=== PATIENT | female | born 1995 | race Hispanic/Latino ===

== ENCOUNTER 2019-11-02 10:03 | Emergency (ER) | payer MEDICAID, OTHER ==
[2019-11-02] MEDS ORDERED: ONDANSETRON HCL 4 MG/2 ML VIAL ONE (10:35)
[2019-11-02] MEDS ORDERED: SODIUM CHLORIDE 0.9% 1000ML 1,000 ML IV ONE (10:36)
== END 2019-11-02 11:59 | disposition home or self-care (01) ==
LOC: EDH 10:03
DX: R11.2 Nausea with vomiting, unspecified (principal); J45.909 Unspecified asthma, uncomplicated
CPT/HCPCS: 87804 ×2; 96361; 96374; 99283; J2405; J7030

== ENCOUNTER 2019-11-03 17:50 | Observation (INO) | payer MEDICAID ==
[~2019-11-03] VITALS: Ht 167.6 cm; Wt 104.3 kg
[2019-11-03] MEDS ORDERED: PROMETHAZINE HCL 25 MG/ML 1ML AMPULE IM SCH (18:45)
== END 2019-11-03 19:50 | disposition home or self-care (01) ==
LOC: EDH 17:50 → LDH 18:09
PROVIDERS: ADMIT Specialist; ATTEND Specialist
DX: O26.892 Other specified pregnancy related conditions, second trimester (principal); R10.9 Unspecified abdominal pain; O99.512 Diseases of the respiratory system complicating pregnancy, second trimester; J45.909 Unspecified asthma, uncomplicated; Z3A.21 21 weeks gestation of pregnancy
CPT/HCPCS: 96372; 99284; G0378 ×2; J2550

== ENCOUNTER 2020-02-20 18:13 | Observation (INO) | payer MEDICAID ==
[~2020-02-20] VITALS: Ht 165.1 cm; Wt 111.6 kg
[2020-02-20 19:16] VITALS: BP 120/73
[2020-02-20] MEDS ORDERED: TERBUTALINE SULFATE VIAL 1MG/ML SQ ONE (20:20)
[2020-02-20] MEDS ORDERED: LACTATED RINGERS 1000ML 1,000 ML IV ONE (20:21)
== END 2020-02-20 22:12 | disposition home or self-care (01) ==
LOC: EDH 18:13 → LDH 18:30
PROVIDERS: ADMIT Specialist; ATTEND Specialist
DX: O62.9 Abnormality of forces of labor, unspecified (principal); O60.03 Preterm labor without delivery, third trimester; O99.513 Diseases of the respiratory system complicating pregnancy, third trimester; J45.909 Unspecified asthma, uncomplicated; Z3A.36 36 weeks gestation of pregnancy
CPT/HCPCS: 81001; 96360; 96372; 99284; G0378 ×3; J3105; J7120

== ENCOUNTER 2020-03-07 05:53 | Inpatient (IN) | payer MEDICAID ==
[~2020-03-07] VITALS: Ht 167.6 cm; Wt 117.0 kg
[2020-03-07] MEDS ORDERED: LACTATED RINGERS 1000ML 1,000 ML IV PRN (06:28)
[2020-03-07] MEDS ORDERED: OXYTOCIN 10 USP UNITS/ML 20 UNIT in LACTATED RINGERS 1000ML 1,000 ML IV SCH (06:30)
[2020-03-07 07:06] LABS: APPEARANCE,URINE Clear (CLEAR); BILIRUBIN,URINE Negative (NEGATIVE); COLOR,URINE Yellow (YELLOW); GLUCOSE, URINE (UA) Negative (NEGATIVE); KETONES,URINE Trace mg/dL (NEGATIVE); LEUKOCYTE ESTERASE ,URINE Negative (NEGATIVE); NITRATE,URINE Negative (NEGATIVE); OCCULT BLOOD,URINE Negative (NEGATIVE); PROTEIN,URINE Negative (NEGATIVE)
[2020-03-07 07:06] LABS: HEMATOCRIT 37.8 % (36-48); MEAN CORPUSCULAR HEMOGLOBIN 28.8 pg (27.0-33.0); MEAN CORPUSCULAR HGB CONC 32.3 g/dL (32.0-36.0); MEAN CORPUSCULAR VOLUME 89.2 fL (79-99); RED BLOOD CELL COUNT(AUTO) 4.24 MIL/uL (4.00-5.50); RED CELL DISTRIBUTION WIDTH 14.9 % (11.0-15.5); WHITE BLOOD COUNT (AUTO) 11.3 K/uL (4.8-10.8)
[2020-03-07] MEDS ORDERED: OXYTOCIN-LR 20 UNITS/1000 ML 1,000 ML IV SCH (07:15)
[2020-03-07 07:35] LABS: BACTERIA,URINE Moderate /HPF (None Seen); RBC,URINE 0-1 /HPF (0-1); WBC,URINE 0-1 /HPF (0-1)
[2020-03-07] MEDS ORDERED: LIDOCAINE HCL 1% 20 ML VIAL INJ PRN (09:00)
[2020-03-07] MEDS ORDERED: PROMETHAZINE HCL 25 MG/ML 1ML AMPULE IM PRN (09:00)
[2020-03-07] MEDS ORDERED: MEPERIDINE-PF 50 MG/ML SYG IVP PRN (09:00)
[2020-03-07 09:26] LABS: RAPID PLASMA REAGIN NONREACTIVE (NONREACTIVE)
[2020-03-07 11:42] LABS: AMPHET/METH SCREEN,URINE NEGATIVE (NEGATIVE); BARBITURATE SCREEN, URINE NEGATIVE (NEGATIVE); BENZODIAZEPINES SCREEN,URINE NEGATIVE (NEGATIVE); CANNABINOID SCREEN,URINE NEGATIVE (NEGATIVE); COCAINE SCREEN,URINE NEGATIVE (NEGATIVE); OPIATE SCREEN,URINE NEGATIVE (NEGATIVE); PHENCYCLIDINE SCREEN,URINE NEGATIVE (NEGATIVE)
[2020-03-07] MEDS ORDERED: ACETAMINOPHEN 325 MG TAB PO PRN (13:30)
[2020-03-07] MEDS ORDERED: BENZOCAINE/LANOLIN/ALOE VERA 60 ML AEROSOL TP PRN (13:30)
[2020-03-07] MEDS ORDERED: LANOLIN 30GM OINTMENT TP PRN (13:30)
[2020-03-07] MEDS ORDERED: ACETAMINOPHEN-CODEINE 300/30MG TAB PO PRN (13:30)
[2020-03-07] MEDS ORDERED: DIPH,PERTUSS(ACELL),TET VAC/PF 0.5 ML VIAL IM PRN (13:30)
[2020-03-07] MEDS ORDERED: MEASLES/MUMPS/RUBELLA VACCINE, LIVE 0.5 ML/VIAL SQ PRN (13:30)
[2020-03-07] MEDS ORDERED: WITCH HAZEL 1 PAD TP PRN (13:30)
[2020-03-07] MEDS: IBUPROFEN 600 MG TABLET PO PRN (15:40)
[2020-03-07] MEDS: OXYTOCIN-LR 20 UNITS/1000 ML 1,000 ML IV SCH (15:41)
[2020-03-07 16:44] VITALS: BP 117/55
[2020-03-07] MEDS ORDERED: PREN-154 PO (17:09)
[2020-03-07 19:48] VITALS: BP 102/56
[2020-03-07] MEDS: DOCUSATE SODIUM 100 MG CAP PO SCH (21:23)
[2020-03-07 23:34] VITALS: BP 108/60
[2020-03-08 03:44] VITALS: BP 110/57
[2020-03-08] MEDS: OXYTOCIN-LR 20 UNITS/1000 ML 1,000 ML IV SCH (06:30)
[2020-03-08 07:18] LABS: HEPATITIS Bs ANTIGEN SCREEN P Negative (Negative)
[2020-03-08 07:36] VITALS: BP 102/56
[2020-03-08] MEDS: DOCUSATE SODIUM 100 MG CAP PO SCH (08:01)
[2020-03-08] MEDS: IBUPROFEN 600 MG TABLET PO PRN (08:16)
--- NOTE | 2020-03-08 10:40 | NUR ---
SS Referral for HX of Positive UDS in July; negative on admission; hx of depression ALEJA met with pt. who reports that she resides at home with 6y; maternal grandparents currently caring for 6y and reportedly up to date with immunizations. Pt. is not employed outside the home; parents and boyfriend/FOB Pelon George are supportive. All utilities reportedly connected in the home. Pt. receives Medicaid, [place] and WIC; carseat in place. Baseball Coach will be Dr. Shea in [place]. Pt. denied any smokers in the home. Pt. denied any history of domestic violence or substance abuse. Pt. reported a history of depression as a teenager and was treated by [facility]. Pt. denied anxiety or thoughts of harm to self or others. Pt. voiced knowledge of PPD, denied any current symptoms of depression. SW encouraged pt. to seek assistance if needed for PPD; pt. verbalized an understanding. Pt. reported a strong support system among family. Pt. stated that her parents and boyfriend will assist her post discharge. Pt. provided with [facility], [facility] and [facility] Substance Use Disorder Services brochures. Pt. voiced no needs or concerns. Pt. to be dismissed home with baby when medically cleared. Addendum: 03/08/20 at 1151 by DELLA GUILLAUME Amended: Links added.
[2020-03-08 11:31] VITALS: BP 93/64
--- NOTE | 2020-03-08 12:10 | NUR ---
DISCHARGE INSTRUCTIONS READ AND EXPLAINED TO PATIENT. NO NEW RX GIVEN. QUESTIONS INVITED AND ANSWERED. PT VOICED UNDERSTANDING ON ALL DISCHARGE INSTRUCTIONS.
--- NOTE | 2020-03-08 13:50 | NUR ---
PATIENT LEFT UNIT VIA WHEELCHAIR WITH BABY IN ARMS. PERSONAL VEHICLE USED FOR TRANSPORTATION ACCOMPANIED BY FAMILY. NO COMPLAINTS OR CONCERNS ADDRESSED FROM PATIENT ON DISCHARGE. BABY SECURE IN CARSEAT.
== END 2020-03-08 13:50 | disposition home or self-care (01) | DRG 560 ==
LOC: LDH 05:53 → WSH 16:40
PROVIDERS: ADMIT Specialist; ATTEND Specialist
PROC: 10E0XZZ Delivery of Products of Conception, External Approach (ICD-10-PCS; principal; 2020-03-07)
PROC: 6A550ZT Pheresis of Cord Blood Stem Cells, Single (ICD-10-PCS; 2020-03-07)
PROC: 3E033VJ Introduction of Other Hormone into Peripheral Vein, Percutaneous Approach (ICD-10-PCS; 2020-03-07)
PROC: 3E0234Z Introduction of Serum, Toxoid and Vaccine into Muscle, Percutaneous Approach (ICD-10-PCS; 2020-03-07)
DX: O99.62 Diseases of the digestive system complicating childbirth (principal); O99.344 Other mental disorders complicating childbirth; K80.20 Calculus of gallbladder without cholecystitis without obstruction; F31.9 Bipolar disorder, unspecified; Z3A.39 39 weeks gestation of pregnancy; Z37.0 Single live birth; Z28.21 Immunization not carried out because of patient refusal; Z23 Encounter for immunization; Z82.49 Family history of ischemic heart disease and other diseases of the circulatory system
CPT/HCPCS: 36415; 80305; 81001; 85027; 86592; 86701; 86850; 86900; 86901; 87088; 87340; 87390; 90715; A4351; G0378; J2175; J2550; J2590

== ENCOUNTER 2022-05-30 12:46 | Observation (INO) | payer MEDICAID ==
[~2022-05-30 12:46] MED LIST: PREN-154 PO
[2022-05-30 12:47] VITALS: BP 119/48
[2022-05-30 13:31] LABS: APPEARANCE,URINE CLEAR (CLEAR); BILIRUBIN,URINE NEGATIVE (NEGATIVE); COLOR,URINE YELLOW (YELLOW); GLUCOSE, URINE (UA) NEGATIVE (NEGATIVE); KETONES,URINE 5 mg/dL (NEGATIVE); LEUKOCYTE ESTERASE ,URINE NEGATIVE Leu/uL (NEGATIVE); NITRATE,URINE NEGATIVE (NEGATIVE); PROTEIN,URINE 10 mg/dL (NEGATIVE); UROBILINOGEN,URINE 0.2 mg/dL (0.2-1.0)
[2022-05-30] MEDS: LACTATED RINGERS 1000ML 1,000 ML IV SCH ×2 (13:31→14:30)
[2022-05-30 14:03] LABS: BACTERIA,URINE RARE /HPF (None Seen); MUCUS,URINE RARE LPF (None Seen); SQUAMOUS EPITHELIAL CELL,UR MOD /HPF (0-2)
== END 2022-05-30 15:35 | disposition home or self-care (01) ==
LOC: EDH 12:46 → LDH 12:47
PROVIDERS: ADMIT Obstetrics & Gynecology; ATTEND Obstetrics & Gynecology
DX: O62.9 Abnormality of forces of labor, unspecified (principal); O60.03 Preterm labor without delivery, third trimester; Z3A.31 31 weeks gestation of pregnancy
CPT/HCPCS: 59025; 96360; 96361; 81001; G0378 ×2; G0379

== ENCOUNTER 2022-06-10 10:42 | Observation (INO) | payer MEDICAID ==
[~2022-06-10] VITALS: Ht 162.6 cm; Wt 109.8 kg
[2022-06-10 10:43] VITALS: BP 114/62
[2022-06-10 11:28] LABS: APPEARANCE,URINE CLEAR (CLEAR); BILIRUBIN,URINE NEGATIVE (NEGATIVE); COLOR,URINE LIGHT-YELLOW (YELLOW); GLUCOSE, URINE (UA) NEGATIVE (NEGATIVE); KETONES,URINE NEGATIVE (NEGATIVE); LEUKOCYTE ESTERASE ,URINE NEGATIVE Leu/uL (NEGATIVE); NITRATE,URINE NEGATIVE (NEGATIVE); OCCULT BLOOD,URINE NEGATIVE (NEGATIVE); PROTEIN,URINE NEGATIVE (NEGATIVE); UROBILINOGEN,URINE 0.2 mg/dL (0.2-1.0)
== END 2022-06-10 12:30 | disposition home or self-care (01) ==
LOC: EDH 10:42 → LDH 10:43
PROVIDERS: ADMIT Obstetrics & Gynecology; ATTEND Obstetrics & Gynecology
DX: O36.8130 Decreased fetal movements, third trimester, not applicable or unspecified (principal); O26.893 Other specified pregnancy related conditions, third trimester; R51.9 Headache, unspecified; Z3A.33 33 weeks gestation of pregnancy
CPT/HCPCS: 81003; G0378 ×2; G0379

== ENCOUNTER 2022-06-11 09:57 | Observation (INO) | payer MEDICAID ==
[~2022-06-11] VITALS: Ht 162.6 cm; Wt 114.3 kg
[2022-06-11 11:47] VITALS: BP 118/65
== END 2022-06-11 11:45 | disposition home or self-care (01) ==
LOC: EDH 09:57 → LDH 09:58
PROVIDERS: ADMIT Obstetrics & Gynecology; ATTEND Obstetrics & Gynecology
DX: O36.8130 Decreased fetal movements, third trimester, not applicable or unspecified (principal); Z3A.33 33 weeks gestation of pregnancy
CPT/HCPCS: 59025; 76819; G0379; G0378

== ENCOUNTER 2022-06-18 11:02 | Observation (INO) | payer MEDICAID ==
[~2022-06-18] VITALS: Ht 162.6 cm; Wt 115.7 kg
[2022-06-18 11:53] LABS: BASOPHILS % (AUTO) 0.7 % (0.0-5.0); EOSINOPHILS % (AUTO) 0.7 % (0.0-8.0); HEMATOCRIT 34.6 % (36-48); LYMPHOCYTES % (AUTO) 23.1 % (21.0-51.0); MEAN CORPUSCULAR HEMOGLOBIN 28.7 pg (27.0-33.0); MEAN CORPUSCULAR HGB CONC 33.2 g/dL (32.0-36.0); MEAN CORPUSCULAR VOLUME 86.3 fL (79-99); MONOCYTES % (AUTO) 6.6 % (3.0-13.0); NEUTROPHILS % (AUTO) 66.5 % (40.0-77.0); PLATELET COUNT (AUTO) 319 K/uL (130-400); RED BLOOD CELL COUNT(AUTO) 4.01 MIL/uL (4.00-5.50); RED CELL DISTRIBUTION WIDTH 13.9 % (11.0-15.5); WHITE BLOOD COUNT (AUTO) 10.7 K/uL (4.8-10.8)
[2022-06-18 12:04] LABS: APPEARANCE,URINE CLEAR (CLEAR); BILIRUBIN,URINE NEGATIVE (NEGATIVE); COLOR,URINE COLORLESS (YELLOW); GLUCOSE, URINE (UA) NEGATIVE (NEGATIVE); KETONES,URINE NEGATIVE (NEGATIVE); LEUKOCYTE ESTERASE ,URINE NEGATIVE Leu/uL (NEGATIVE); NITRATE,URINE NEGATIVE (NEGATIVE); OCCULT BLOOD,URINE NEGATIVE (NEGATIVE); PROTEIN,URINE NEGATIVE (NEGATIVE); UROBILINOGEN,URINE 0.2 mg/dL (0.2-1.0)
[2022-06-18 12:08] LABS: CREATININE 0.6 mg/dL (0.5-1.5); POTASSIUM 3.8 mmol/L (3.5-5.1)
[2022-06-18 12:12] LABS: ALBUMIN 2.7 g/dL (3.5-5.0); TOTAL PROTEIN, SERUM 7.2 g/dL (6.0-8.3); URIC ACID 4.7 mg/dL (2.6-7.2)
[2022-06-18 12:16] LABS: INR 0.93 (0.85-1.15); PROTHROMBIN TIME 9.5 SEC (9.6-11.6)
[2022-06-18 12:17] LABS: PARTIAL THROMBOPLASTIN TIME 27.5 SEC (26.3-35.5)
== END 2022-06-18 13:48 | disposition home or self-care (01) ==
LOC: LDH 11:02
PROVIDERS: ADMIT Obstetrics & Gynecology; ATTEND Obstetrics & Gynecology
DX: O26.893 Other specified pregnancy related conditions, third trimester (principal); R03.0 Elevated blood-pressure reading, without diagnosis of hypertension; R51.9 Headache, unspecified; Z3A.34 34 weeks gestation of pregnancy
CPT/HCPCS: 84550; 80053; 85025; 85384; 85610; 85730; 81003; 36415; 76805; G0378 ×3; G0379; A4351

== ENCOUNTER 2022-07-03 15:24 | Observation (INO) | payer MEDICAID ==
[~2022-07-03] VITALS: Ht 162.6 cm; Wt 117.9 kg
[2022-07-03 16:00] VITALS: BP 121/65
== END 2022-07-03 16:45 | disposition home or self-care (01) ==
LOC: EDH 15:24 → LDH 15:25
PROVIDERS: ADMIT Obstetrics & Gynecology; ATTEND Obstetrics & Gynecology
DX: O62.9 Abnormality of forces of labor, unspecified (principal); O42.913 Preterm premature rupture of membranes, unspecified as to length of time between rupture and onset of labor, third trimester; Z3A.36 36 weeks gestation of pregnancy
CPT/HCPCS: 59025; G0378; G0379

== ENCOUNTER 2022-07-06 12:44 | Observation (INO) | payer MEDICAID ==
[~2022-07-06] VITALS: Ht 162.6 cm; Wt 115.7 kg
[2022-07-06 12:46] VITALS: BP 144/72
[2022-07-06 13:19] LABS: APPEARANCE,URINE CLEAR (CLEAR); BILIRUBIN,URINE NEGATIVE (NEGATIVE); COLOR,URINE LIGHT-YELLOW (YELLOW); GLUCOSE, URINE (UA) NEGATIVE (NEGATIVE); KETONES,URINE NEGATIVE (NEGATIVE); LEUKOCYTE ESTERASE ,URINE NEGATIVE Leu/uL (NEGATIVE); NITRATE,URINE NEGATIVE (NEGATIVE); PH,URINE 6.5 (5.0-8.0); PROTEIN,URINE NEGATIVE (NEGATIVE); UROBILINOGEN,URINE 0.2 mg/dL (0.2-1.0)
[2022-07-06 13:22] LABS: BACTERIA,URINE RARE /HPF (None Seen); MUCUS,URINE RARE LPF (None Seen); SQUAMOUS EPITHELIAL CELL,UR MOD /HPF (0-2); WBC,URINE 0-1 /HPF (0-1)
[2022-07-06] MEDS ORDERED: TERBUTALINE SULFATE VIAL 1MG/ML SQ PRN (14:00)
== END 2022-07-06 14:20 | disposition home or self-care (01) ==
LOC: EDH 12:44 → LDH 12:45
PROVIDERS: ADMIT Obstetrics & Gynecology; ATTEND Obstetrics & Gynecology
DX: O62.9 Abnormality of forces of labor, unspecified (principal); O99.891 Other specified diseases and conditions complicating pregnancy; M54.9 Dorsalgia, unspecified; O26.893 Other specified pregnancy related conditions, third trimester; R19.7 Diarrhea, unspecified; R10.2 Pelvic and perineal pain; R10.9 Unspecified abdominal pain; Z3A.37 37 weeks gestation of pregnancy
CPT/HCPCS: 59025; 81001; G0378; G0379; J3105

== ENCOUNTER 2022-07-09 11:15 | Inpatient (IN) | payer MEDICAID ==
[~2022-07-09] VITALS: Ht 162.6 cm; Wt 119.7 kg
[2022-07-09] MEDS ORDERED: MEPERIDINE-PF 50 MG/ML SYG IVP PRN (12:00)
[2022-07-09] MEDS ORDERED: OXYTOCIN-LR 20 UNITS/1000 ML 1,000 ML IV SCH ×3 (12:00→19:00)
[2022-07-09] MEDS ORDERED: NALOXONE HCL 0.4 MG/1 ML ML IV PRN (12:00)
[2022-07-09] MEDS ORDERED: PROMETHAZINE HCL 25 MG/ML 1ML AMPULE IM PRN (12:00)
[2022-07-09] MEDS ORDERED: LACTATED RINGERS 500 ML 500 ML IV PRN (12:00)
[2022-07-09] MEDS ORDERED: LACTATED RINGERS 1000ML 1,000 ML IV PRN (12:00)
[2022-07-09] MEDS ORDERED: EPHEDRINE SULFATE 50 MG/ML AMPULE IVP PRN (12:00)
[2022-07-09] MEDS ORDERED: ROPIVACAINE 0.2% 100ML VIAL 100 ML EP SCH (12:00)
[2022-07-09 12:23] LABS: APPEARANCE,URINE CLEAR (CLEAR); BILIRUBIN,URINE NEGATIVE (NEGATIVE); COLOR,URINE LIGHT-YELLOW (YELLOW); GLUCOSE, URINE (UA) NEGATIVE (NEGATIVE); KETONES,URINE NEGATIVE (NEGATIVE); LEUKOCYTE ESTERASE ,URINE NEGATIVE Leu/uL (NEGATIVE); NITRATE,URINE NEGATIVE (NEGATIVE); OCCULT BLOOD,URINE MODERATE (NEGATIVE); PROTEIN,URINE NEGATIVE (NEGATIVE); UROBILINOGEN,URINE 0.2 mg/dL (0.2-1.0)
[2022-07-09 12:27] LABS: MEAN CORPUSCULAR HEMOGLOBIN 28.4 pg (27.0-33.0); MEAN CORPUSCULAR HGB CONC 32.9 g/dL (32.0-36.0); MEAN CORPUSCULAR VOLUME 86.3 fL (79-99); RED BLOOD CELL COUNT(AUTO) 3.94 MIL/uL (4.00-5.50); RED CELL DISTRIBUTION WIDTH 14.6 % (11.0-15.5); WHITE BLOOD COUNT (AUTO) 10.3 K/uL (4.8-10.8)
[2022-07-09 12:36] LABS: BACTERIA,URINE RARE /HPF (None Seen); MUCUS,URINE RARE LPF (None Seen); SQUAMOUS EPITHELIAL CELL,UR RARE /HPF (0-2)
[2022-07-09 13:01] LABS: AMPHET/METH SCREEN,URINE NEGATIVE (NEGATIVE); BARBITURATE SCREEN, URINE NEGATIVE (NEGATIVE); BENZODIAZEPINES SCREEN,URINE NEGATIVE (NEGATIVE); CANNABINOID SCREEN,URINE NEGATIVE (NEGATIVE); COCAINE SCREEN,URINE NEGATIVE (NEGATIVE); OPIATE SCREEN,URINE NEGATIVE (NEGATIVE); PHENCYCLIDINE SCREEN,URINE NEGATIVE (NEGATIVE)
[2022-07-09] MEDS ORDERED: FENTANYL CITRATE PF 50 MCG/1 ML 2ML VIAL ONE (16:30)
[2022-07-09] MEDS ORDERED: WITCH HAZEL 1 PAD TP PRN (19:00)
[2022-07-09] MEDS ORDERED: LANOLIN 30GM OINTMENT TP PRN (19:00)
[2022-07-09] MEDS ORDERED: BENZOCAINE/LANOLIN/ALOE VERA 60 ML AEROSOL TP PRN (19:00)
[2022-07-09] MEDS ORDERED: ACETAMINOPHEN WITH CODEINE 1 TAB TAB PO PRN (19:00)
[2022-07-09] MEDS ORDERED: MEASLES/MUMPS/RUBELLA VACCINE, LIVE 0.5 ML/VIAL SQ PRN (19:00)
[2022-07-09] MEDS ORDERED: ACETAMINOPHEN 325 MG TAB PO PRN (19:00)
[2022-07-09] MEDS ORDERED: DIPH,PERTUSS(ACELL),TET VAC/PF 0.5 ML VIAL IM PRN (19:00)
[2022-07-09] MEDS: DOCUSATE SODIUM 100 MG CAP PO SCH (21:45)
[2022-07-09 23:35] VITALS: BP 120/64
[2022-07-09] MEDS: IBUPROFEN 600 MG TABLET PO PRN (23:42)
[2022-07-10 03:55] VITALS: BP 100/56
[2022-07-10 08:00] VITALS: BP 118/68
[2022-07-10] MEDS: IBUPROFEN 600 MG TABLET PO PRN ×2 (08:42→18:24)
[2022-07-10] MEDS: DOCUSATE SODIUM 100 MG CAP PO SCH (09:42)
[2022-07-10 12:00] VITALS: BP 121/61
[2022-07-10] MEDS ORDERED: IBUP-2071 PO (14:24)
[2022-07-10] MEDS ORDERED: DOCU-116 PO (14:24)
[2022-07-10 16:00] VITALS: BP 120/72
== END 2022-07-10 18:30 | disposition home or self-care (01) | DRG 560 ==
LOC: LDH 11:15 → WSH 21:04
PROVIDERS: ADMIT Obstetrics & Gynecology; ATTEND Obstetrics & Gynecology
PROC: 10E0XZZ Delivery of Products of Conception, External Approach (ICD-10-PCS; principal; 2022-07-09)
PROC: 10907ZC Drainage of Amniotic Fluid, Therapeutic from Products of Conception, Via Natural or Artificial Opening (ICD-10-PCS; 2022-07-09)
PROC: 3E0R3BZ Introduction of Anesthetic Agent into Spinal Canal, Percutaneous Approach (ICD-10-PCS; 2022-07-09)
PROC: 00HU33Z Insertion of Infusion Device into Spinal Canal, Percutaneous Approach (ICD-10-PCS; 2022-07-09)
DX: O69.81X0 Labor and delivery complicated by cord around neck, without compression, not applicable or unspecified (principal); Z37.0 Single live birth; O99.214 Obesity complicating childbirth; Z3A.37 37 weeks gestation of pregnancy
CPT/HCPCS: 36415; 59025; 80305; 81001; 85027; 86592; 86850; 86900; 86901; 87340; 90715; A4314; G0378; G0379; J2590; J2795; J3010; J3105; J7120

== ENCOUNTER 2023-01-03 06:56 | Day surgery (SDC) | payer MEDICAID ==
[2023-01-01 15:44] LABS: BASOPHILS % (AUTO) 0.7 % (0.0-5.0); EOSINOPHILS % (AUTO) 1.3 % (0.0-8.0); HEMATOCRIT 40.4 % (36-48); LYMPHOCYTES % (AUTO) 24.1 % (21.0-51.0); MEAN CORPUSCULAR HEMOGLOBIN 28.5 pg (27.0-33.0); MEAN CORPUSCULAR HGB CONC 31.7 g/dL (32.0-36.0); NEUTROPHILS % (AUTO) 67.2 % (40.0-77.0); PLATELET COUNT (AUTO) 335 K/uL (130-400); RED BLOOD CELL COUNT(AUTO) 4.49 MIL/uL (4.00-5.50); RED CELL DISTRIBUTION WIDTH 14.6 % (11.0-15.5); WHITE BLOOD COUNT (AUTO) 10.6 K/uL (4.8-10.8)
[2023-01-01 16:30] VITALS: BP 149/71
[2023-01-03] VITALS (17 sets, daily range): BP systolic 106–120; BP diastolic 53–81
[~2023-01-03] VITALS: Ht 162.6 cm; Wt 114.8 kg
[~2023-01-03 06:56] MED LIST changes: +CEFAZOLIN SODIUM 3 GM VIAL IVPB SCH; +LACTATED RINGERS 1000ML 1,000 ML IV SCH; -PREN-154 PO
[2023-01-03] MEDS ORDERED: BUPIVACAINE/PF 0.25% 30ML VIAL IJ ONE ×2 (07:04→09:19)
[2023-01-03] MEDS ORDERED: CEFAZOLIN SODIUM 2 GM VIAL ONE (07:28)
[2023-01-03] MEDS ORDERED: CEFAZOLIN SODIUM 1 GM VIAL ONE (07:28)
[2023-01-03] MEDS ORDERED: BIRTH CONTROL PILL PO (07:44)
[2023-01-03] MEDS ORDERED: DEXAMETHASONE SOD PHOSPHATE 10MG/ML 1ML VIAL ONE (08:48)
[2023-01-03] MEDS ORDERED: MIDAZOLAM HCL 1 MG/ML 2ML VIAL ONE (08:48)
[2023-01-03] MEDS ORDERED: LIDOCAINE PF 100MG/5ML (2%) SYRINGE 5ML ONE (08:48)
[2023-01-03] MEDS ORDERED: FENTANYL CITRATE PF 50 MCG/1 ML 2ML VIAL ONE (08:49)
[2023-01-03] MEDS ORDERED: PROPOFOL 10 MG/ML 20ML VIAL IV ONE (08:49)
[2023-01-03] MEDS ORDERED: ONDANSETRON 4MG INJ ONE ×2 (08:49→10:19)
[2023-01-03] MEDS ORDERED: ROCURONIUM 10MG/1ML SYR 10 MG/ML ML ONE (08:49)
[2023-01-03] MEDS ORDERED: NEOSTIGMINE 5MG/5ML SYR IV ONE (09:45)
[2023-01-03] MEDS ORDERED: GLYCOPYRROLATE 1 MG/5 ML SYRINGE ONE ×2 (09:45→09:59)
[2023-01-03] MEDS ORDERED: MEPERIDINE-PF 25 MG/ML SYG ONE ×3 (09:48→10:34)
[2023-01-03] MEDS ORDERED: KETOROLAC 30MG VIAL (30MG/ML) ONE (10:34)
== END 2023-01-03 11:45 | disposition home or self-care (01) ==
LOC: DAH 06:56
PROVIDERS: ATTEND Obstetrics & Gynecology
DX: Z30.2 Encounter for sterilization (principal); Z20.822 Contact with and (suspected) exposure to COVID-19; J45.909 Unspecified asthma, uncomplicated; E66.01 Morbid (severe) obesity due to excess calories
CPT/HCPCS: 84703; 85025; 86850; 86900; 86901; 87426; 36415; 58670; A6260; J0690 ×3; A4510; A4663; A4351; A4606; J7120; J3010; J3490 ×4; J1100; J2710; S0020 ×2; J2250; J2405 ×2; J1885; J2175 ×3; C1769 ×3; G0168; A4649; A4215 ×2; A4223; A4222; A4221; A4600; J2001; J2704

== ENCOUNTER 2024-05-22 08:06 | Emergency (ER) | payer SELFPAY ==
[~2024-05-22] VITALS: Ht 160 cm; Wt 114.3 kg
[~2024-05-22 08:06] MED LIST changes: +BIRTH CONTROL PILL PO; -CEFAZOLIN SODIUM 3 GM VIAL IVPB SCH; -LACTATED RINGERS 1000ML 1,000 ML IV SCH
[2024-05-22 08:08] VITALS: BP 117/71; PULSE 86; RESP 18; TEMP 98.8; O2SAT 99
[2024-05-22] MEDS: FAMOTIDINE 20MG TAB PO ONE (08:55)
[2024-05-22] MEDS: DiphenhydrAMINE HCL 50 MG/ML VIAL IM ONE (08:55)
[2024-05-22] MEDS: Solu-medROL 125MG VIAL IM ONE (08:55)
[2024-05-22] MEDS ORDERED: PRED20TA3 PO (09:29)
[2024-05-22] MEDS ORDERED: BENZ-39 PO (09:29)
[2024-05-22] MEDS ORDERED: FAMO-136 PO (09:29)
== END 2024-05-22 09:48 | disposition home or self-care (01) ==
LOC: EDH 08:06
DX: G93.31 Postviral fatigue syndrome (principal); J45.909 Unspecified asthma, uncomplicated; F32.A Depression, unspecified; Z79.3 Long term (current) use of hormonal contraceptives; Z98.51 Tubal ligation status
CPT/HCPCS: 99284; 96372 ×2; J1200; J2919